=== PATIENT | female | born 1980 | race Asian ===

== ENCOUNTER 2017-09-29 11:39 | Inpatient (IN) | payer OTHER ==
[~2017-09-29] VITALS: Ht 162.6 cm; Wt 82.1 kg
[~2017-09-29 11:39] MED LIST: BUPIVACAINE/PF 0.25% ONE; EPINEPHRINE 1 MG/ML, 1ML ONE; FLUT9.9S NAS; IBUP-1222 PO; MULT1TAB60 PO; NEOMY/POLYMYXIN B GU IRR. 1 ML IRRIG ONE; NITR100C6 PO; iron PO
[2017-09-29] MEDS ORDERED: LACTATED RINGERS 1,000 ML IV SCH (12:43)
[2017-09-29] MEDS ORDERED: ACETAMINOPHEN 500 MG TABLET PO ONE (13:00)
[2017-09-29] MEDS ORDERED: GABAPENTIN 300 MG CAPSULE PO ONE (13:00)
[2017-09-29] MEDS ORDERED: SCOPOLAMINE PATCH, 1.5MG PATCH.TD72 TD ONE (13:00)
[2017-09-29] MEDS ORDERED: OxyconTIN ER 20 MG TAB.ER PO ONE (13:00)
[2017-09-29 13:19] VITALS: BP 119/80
[2017-09-29] MEDS ORDERED: ROCURONIUM 10 MG/ML,10ML ONE (15:42)
[2017-09-29] MEDS ORDERED: GLYCOPYRROLATE 0.2MG/1ML, 5ML ONE (15:42)
[2017-09-29] MEDS ORDERED: CEFAZOLIN 1,000 MG ONE (15:42)
[2017-09-29] MEDS ORDERED: PROPOFOL 10 MG/ML, 20ML ONE (15:42)
[2017-09-29] MEDS ORDERED: DEXAMETHASONE 4 MG/ML, 1ML ONE (15:42)
[2017-09-29] MEDS ORDERED: NEOSTIGMINE 1 MG/ML, 10ML ONE (15:42)
[2017-09-29] MEDS ORDERED: HYDROmorphone 2 MG/ML, 1ML ONE (17:25)
[2017-09-29] MEDS: HYDROmorphone 1 MG/ML, 1ML IV PRN ×3 (17:25→17:56)
[2017-09-29] MEDS ORDERED: MEPERIDINE/PF 25MG/0.5ML IVPush PRN (17:30)
[2017-09-29] MEDS ORDERED: LABETALOL 5MG/ML, 20ML IV PRN (17:30)
[2017-09-29] MEDS ORDERED: PROMETHAZINE 12.5 MG SUPP PR PRN (17:30)
[2017-09-29] MEDS ORDERED: OXYcodone 5 MG/5 ML ORAL.SOL UDC PO PRN (17:30)
[2017-09-29] MEDS ORDERED: ONDANSETRON 2MG/ML, 2ML IVPush PRN (17:30)
[2017-09-29] MEDS ORDERED: PROMETHAZINE 25 MG/ML, 1ML IV PRN (17:30)
[2017-09-29] MEDS ORDERED: FENTANYL PF 100 MCG/2ML IV PRN (17:30)
[2017-09-29] MEDS ORDERED: hydrALAzine 20 MG/ML, 1ML IV PRN (17:30)
[2017-09-29] MEDS ORDERED: morphine SULFATE 10 MG/ML, 1ML IV PRN (17:30)
[2017-09-29] MEDS ORDERED: OXYcodone 5 MG/5 ML ORAL.SOL UDC ONE (17:43)
[2017-09-29] MEDS ORDERED: ACETAMINOPHEN 325 MG TABLET PO PRN (19:00)
[2017-09-29] MEDS ORDERED: ACETAMINOPHEN 650 MG SUPP PR PRN (19:00)
[2017-09-29] MEDS ORDERED: HYDROmorphone 2 MG/ML, 1ML IV PRN (19:00)
[2017-09-29] MEDS ORDERED: ONDANSETRON 2MG/ML, 2ML IV PRN (19:00)
[2017-09-29] MEDS ORDERED: FLURAZEPAM 15 MG CAPSULE PO PRN (21:00)
[2017-09-29] MEDS ORDERED: MORPHINE SULFATE 4 MG/ML, 1ML IVPush PRN (21:00)
[2017-09-29] MEDS ORDERED: ZOLPIDEM 5MG TABLET PO PRN (21:00)
[2017-09-29] MEDS: IBUPROFEN 600 MG TABLET PO SCH (22:07)
[2017-09-29] MEDS: DOCUSATE 100 MG CAPSULE PO SCH (22:07)
[2017-09-29] MEDS: SIMETHICONE 80 MG CHEW TAB PO SCH (22:07)
[2017-09-29] MEDS: OXYcodone/APAP 5/325MG TABLET PO PRN (22:07)
[2017-09-29] MEDS: NITROFURANTOIN (MACROBID) 100 MG CAPSULE PO SCH (22:08)
[2017-09-30 00:31] VITALS: BP 132/65
[2017-09-30] MEDS: OXYcodone/APAP 5/325MG TABLET PO PRN ×2 (01:57→06:55)
[2017-09-30 04:05] VITALS: BP 112/70
[2017-09-30] MEDS: IBUPROFEN 600 MG TABLET PO SCH (06:11)
[2017-09-30 07:55] VITALS: BP 125/63
[2017-09-30] MEDS: NITROFURANTOIN (MACROBID) 100 MG CAPSULE PO SCH (08:06)
[2017-09-30] MEDS: SIMETHICONE 80 MG CHEW TAB PO SCH (08:06)
[2017-09-30] MEDS: DOCUSATE 100 MG CAPSULE PO SCH (08:07)
[2017-09-30] MEDS ORDERED: FERROUS SULFATE 325 MG TABLET PO SCH (09:00)
[2017-09-30] MEDS ORDERED: MULTIVITAMIN 1 TABLET PO SCH (09:00)
[2017-09-30] MEDS ORDERED: FLUTICASONE NASAL SPRAY 16GM NAS SCH (09:00)
== END 2017-09-30 10:13 | disposition home or self-care (01) | DRG 743 ==
LOC: OUT 11:39 → 4NOR 18:10 → OUT 20:51 → 4NOR 20:52 → DCLOUNGE 09-30 10:05
PROVIDERS: ADMIT Obstetrics & Gynecology Female Pelvic Medicine and Reconstructive Surgery; ATTEND Obstetrics & Gynecology Female Pelvic Medicine and Reconstructive Surgery
PROC: 0TSD4ZZ Reposition Urethra, Percutaneous Endoscopic Approach (ICD-10-PCS; 2017-09-29)
PROC: 0UQF4ZZ Repair Cul-de-sac, Percutaneous Endoscopic Approach (ICD-10-PCS; 2017-09-29)
PROC: 0USG4ZZ Reposition Vagina, Percutaneous Endoscopic Approach (ICD-10-PCS; 2017-09-29)
PROC: 0WQN4ZZ Repair Female Perineum, Percutaneous Endoscopic Approach (ICD-10-PCS; 2017-09-29)
PROC: 0JQC3ZZ Repair Pelvic Region Subcutaneous Tissue and Fascia, Percutaneous Approach (ICD-10-PCS; 2017-09-29)
PROC: 0JQC3ZZ Repair Pelvic Region Subcutaneous Tissue and Fascia, Percutaneous Approach (ICD-10-PCS; 2017-09-29)
PROC: 0UT9FZZ Resection of Uterus, Via Natural or Artificial Opening With Percutaneous Endoscopic Assistance (ICD-10-PCS; principal; 2017-09-29 14:00)
PROC: 0UT7FZZ Resection of Bilateral Fallopian Tubes, Via Natural or Artificial Opening With Percutaneous Endoscopic Assistance (ICD-10-PCS; 2017-09-29 14:00)
DX: N80.0 Endometriosis of uterus (principal); D25.9 Leiomyoma of uterus, unspecified; N39.3 Stress incontinence (female) (male); N81.11 Cystocele, midline; N81.5 Vaginal enterocele; N81.6 Rectocele; N83.201 Unspecified ovarian cyst, right side; N85.00 Endometrial hyperplasia, unspecified; N94.10 Unspecified dyspareunia; Z87.891 Personal history of nicotine dependence; N39.46 Mixed incontinence
CPT/HCPCS: 81025; 88307; J0171; J0690; J1100; J1170; J2250; J2405; J2704; J2710; J3010; J3490; C1771; J7120